=== PATIENT | female | born 1955 | race Caucasian/White ===

== ENCOUNTER → 2024-08-19 16:32 | Outpatient (REF) | payer OTHER, SELFPAY | LOC: RAD 16:32 | PROVIDERS: ATTENDING PHYSICIAN Family Medicine | DX: Z91.81 History of falling (principal); S09.90XA Unspecified injury of head, initial encounter | CPT/HCPCS: 70450 ==

== ENCOUNTER 2024-08-21 13:02 | Emergency (ER) | payer OTHER, SELFPAY ==
[2024-08-21 13:06] VITALS: BP 165/103
--- NOTE | 2024-08-21 15:13 | ED.GENMED ---
History of Present Illness
General
Chief Complaint: Headache
Source: patient
Exam Limitations: none
Time Seen by Provider: 08/21/24 14:03
Nursing documentation reviewed up to this point in time: agreed with
History of Present Illness
History of Present Illness:
68 yo female w h/o BPPV, has had a cough for past 3 days with 'coughing fits.' Yesterday during one of the coughing spells felt sudden 'like someone zapped me with a cattle prod' pain right posterior scalp. States her right eye has been tearing
frequently since. Denies change in vision, n/v/. The area is exquisitely painful whenever she coughs or even clears her throat.
She has taken Excedrin
She was here 2 days ago for frontal scalp injury when she ran into her garage door. Had saw PCP who felt her scalp and told her she had a skull fracture and sent her here for head CT. She never got the results of the CT but assumed she has a skull
fracture.
She is worried that the pain she feels in the back of her head when she coughs is related to the skull fracture.
Past History
Past History
ED Past Medical History: Psychiatric
ED Past Surgical History: Orthopedic
Social History
Tobacco: Non-smoker
Alcohol: None
Drug: None
Personal:
Living: with family
Review of Systems
Review of Systems
Allergies reviewed?: Yes
All Other Systems: ROS reviewed and negative except as documented in HPI and ROS
Constitutional: Denies fever or fatigue
EENT: Reports other (tearing right eye)
Respiratory: Denies trouble breathing
Cardiac: Denies chest pain
ABD/GI: Denies abdominal pain, nausea or vomiting
Musculoskeletal: Reports no symptoms
Skin: Reports no symptoms
Neurological: Reports other (shooting pains right posterior scalp with coughing); Denies dizzy, weakness or numbness
Phy Exam
Physical Exam
Physical Exam:
GENERAL: No acute distress. A&Ox3.
CONSTITUTIONAL: Afebrile.
HEAD: mild vertical depression palpable anterior middle scalp at part line. Rest of scalp NC/AT. With cough pt winces and holds right side posterior head due to pain which subsides immediately after coughing.
EYES: PERRL, conjunctivae normal
Neck: Supple
ENMT: moist mucus membranes, Pharynx nl, TMs normal
RESPIRATORY: Regular respirations, nonlabored, lungs clear.
CARDIOVASCULAR: Regular rate and rhythm, no murmurs, no rubs.
GI: Soft, nontender, normal BS
MUSCULOSKELETAL: Moves with ease. Well perfused.
SKIN: Warm, dry, pink
PSYCH: Normal mood and affect. Well kept, interactive and appropriate
NEUROLOGIC: Awake, alert and oriented. Speech clear. CN 2-12 intact. Finger to nose intact. No focal neurological deficits. ambulates with steady gait
Course
Orders/Labs/Results
Orders:
Orders
08/21/24 15:02
Dexamethasone Pf [Decadron] 10 mg PO NOW STA
Ketorolac [Toradol] 30 mg IM NOW STA
Vital Signs
Initial and Last Documented VS:
Initial Vital Signs
Temp Pulse Resp BP Pulse Ox
98 F 87 18 165/103 99
08/21/24 13:06 08/21/24 13:06 08/21/24 13:06 08/21/24 13:06 08/21/24 13:06
Last Documented Vital Signs
Temp Pulse Resp BP Pulse Ox
98 F 79 18 136/58 97
08/21/24 13:06 08/21/24 16:01 08/21/24 16:01 08/21/24 16:01 08/21/24 16:01
MDM/Problems Addressed
Differential Diagnosis Includes:
Cephalgia with coughing, occipital neuralgia
MDM/Problems Addressed:
68 yo female has had a cough for past 3 days with 'coughing fits.' Yesterday during one of the coughing spells felt sudden 'like someone zapped me with a cattle prod' pain right posterior scalp. States her right eye has been tearing frequently
since. Denies change in vision, n/v/. The area is exquisitely painful whenever she coughs or even clears her throat. Her cough and congestion are improving she states.
She has taken Excedrin
She was here 2 days ago for frontal scalp injury when she ran into her garage door. Had saw PCP who felt her scalp and told her she had a skull fracture and sent her here for head CT. She never got the results of the CT but assumed she has a skull
fracture.
She is worried that the pain she feels in the back of her head when she coughs is related to the skull fracture.
There is order in [place] for head CT and it was done but there is not report in the system.
I contacted Dr. Gonzalez who read it and states no fracture or other acute abnormality
IMPRESSION:
1. No intracranial hemorrhage or displaced skull fracture appreciated.
2. Mild white matter hypoattenuation, most suggestive of small vessel change.
3. Chronic lacunar infarct within the left insular cortex region.
Copy of report given to pt, reviewed and all questions answered.
Neuro exam is normal, no indication for further imaging.
Plan: Ibuprofen, Toradol IM and Decadron 10 mg given here
Pt reassured she does not have skull fracture so posterior scalp pain is not related to a skull fracture
BP at discharge 136/58. Ambulated out with steady gait
mild vertical depression palpable anterior middle scalp at part line (her normal anatomy?) She states it's never been there before.
*Critical Care Note
Total Time (30-74mins, 75-104mins- exclusive of procedures): Not Applicable
ED Attending Note
-
Portions of this chart may have been created with voice recognition software.� Occasional wrong word or��sound alike� substitutions may have occurred due to the inherent limitations of voice recognition software.
Discharge Plan
Departure
Patient Disposition: Home (Routine Discharge)
Date of Disposition: 08/21/24
Time of Disposition: 15:58
Patient with high blood pressure during this ER visit?: No
Condition: Good
Discharge Problem:
Head pain cephalgia
Instructions: Headache, Adult (DC)
Prescriptions:
No Action
naproxen sodium [Aleve] 220 MG tablet
220 mg PO DAILY
Referrals:
Dulce Maria Ravi DO [Family Provider] - As needed
Activity Restrictions/Additional Instructions:
As we discussed, no skull fracture on CT scan
Your pain is called cephalgia, a general name for scalp nerve pain.
You were given Decadron (a steroid for inflammation) and Toradol (antiinflammatory, analgesic)
Ibuprofen 600 mg (with food) every 6 hours as needed for the next 2 days.
If you still have scalp pain, see your doctor for recheck in 4-5 days.
Interventions
Interventions:
*Risk Screen - Suicide Last Done: 08/21/24 13:06
*General Assessment Last Done: 08/21/24 13:06
*Neglect/Abuse Screening Last Done: 08/21/24 13:06
ED- Fall Risk Assessment Last Done: 08/21/24 16:03
*ED COVID-19 Vaccine History Last Done: 08/21/24 16:28
*Nursing Disposition Last Done: 08/21/24 16:28
ED- Neurological Assessment Last Done: 08/21/24 16:03
Discharge Date and Time
Discharge Date/Time: 08/21/24 16:10
Print Language: ROMANIAN
[2024-08-21] MEDS: TORADOL 30 MG IM (15:25)
[2024-08-21] MEDS: DECADRON 10 MG PO (15:26)
[2024-08-21 15:27] VITALS: BP 136/58
[2024-08-21 16:01] VITALS: BP 136/58
== END 2024-08-21 16:10 | disposition home or self-care (01) ==
LOC: EMR 13:02
PROVIDERS: EMERGENCY PHYSICIAN Student in an Organized Health Care Education/Training Program; FAMILY PHYSICIAN Family Medicine
DX: R51.9 Headache, unspecified (principal); Z86.73 Personal history of transient ischemic attack (TIA), and cerebral infarction without residual deficits
CPT/HCPCS: 99282; 96372

== ENCOUNTER 2024-12-02 15:35 | Emergency (ER) | payer OTHER, SELFPAY ==
[2024-12-02 15:54] VITALS: BP 153/90
[2024-12-02 16:27] LABS: % Basophils 0.4 % (0-2); % Eosinophils 2.5 % (0-6); % Immature Granulocytes 0.1 % (0-0.5); % Lymphocytes 34.6 % (20.5-51.1); % Monocytes 7.9 % (1.7-9.3); % Neutrophils 54.5 % (42.2-75.2); Absolute Eosinophils 0.2 10^3/uL (0-0.7); Absolute Lymphocytes 2.7 10^3/uL (1.2-3.4); Absolute Monocytes 0.6 10^3/uL (0.1-0.6); Absolute Neutrophils 4.2 10^3/uL (1.4-6.5); Hematocrit 40.5 % (37.0-47.0); Hemoglobin 13.5 g/dL (12.0-16.0); Mean Corp Hgb Conc. 33.3 g/dL (33.0-37.0); Mean Corpuscular Hgb 32.8 pg (27.0-31.0); Mean Corpuscular Volume 98.3 fL (81.0-99.0); Mean Platelet Volume 10.8 fL (7.4-10.4); Nucleated Red Blood Cells % 0 %; Platelet Count 232 10^3/uL (130-400); Red Blood Cell Count 4.12 10^6/uL (4.20-5.40); Red Cell Dist. Width 12.7 % (11.5-14.5); White Blood Cell Count 7.7 10^3/uL (4.8-10.8)
[2024-12-02 16:41] LABS: ALT (SGPT) 17 U/L (0-35); AST (SGOT) 27 U/L (14-36); Albumin 4.6 g/dl (3.5-5.0); Alkaline Phosphatase 106 U/L (38-126); Blood Urea Nitrogen 19 mg/dl (7-17); Calcium 9.7 mg/dl (8.4-10.2); Carbon Dioxide 28 mmol/L (22-30); Chloride 100 mmol/L (98-107); Glucose 101 mg/dl (70-99); Magnesium 2.4 mg/dl (1.6-2.3); Potassium 4.3 mmol/L (3.5-5.1); Sodium 137 mmol/L (135-145); Total Bilirubin 1.3 mg/dl (0.2-1.3); Total Protein 7.4 g/dl (6.3-8.2); eGFR > 60.00
[2024-12-02 16:52] LABS: Troponin I < 0.012 ng/ml
[2024-12-02 17:11] LABS: TSH Reflex To Free T4 1.39 uIU/ml (0.47-4.68)
--- NOTE | 2024-12-02 18:43 | ED.GENMED ---
History of Present Illness
General
Chief Complaint: Cardiac Symptoms
Time Seen by Provider: 12/02/24 18:28
History of Present Illness
History of Present Illness:
69-year-old female with history of hyperlipidemia presents to the emergency department for evaluation of multiple symptoms. She reports ongoing intermittent chest discomfort for the past month. This pain is seemingly random with no obvious
provocation or palliation, she does note that there is no clear exertional worsening of the symptom. She also notes that she has had vertigo for the past week. Prior history of positional vertigo that required vestibular therapy. No vertigo at
rest. Denies any vision changes, shortness of breath, pleuritic chest pain, nausea, vomiting.
Past History
Past History
ED Past Medical History: Psychiatric
ED Past Surgical History: Orthopedic
Social History
Tobacco: Non-smoker
Alcohol: None
Drug: None
Personal:
Living: with family
Review of Systems
Review of Systems
Allergies reviewed?: Yes
All Other Systems: ROS reviewed and negative except as documented in HPI and ROS
Phy Exam
Physical Exam
Physical Exam:
GEN: Well appearing, NAD, WDWN
HEENT: Oral mucosa moist, no scleral icterus
Cardiac: Regular rate and rhythm, no murmurs
Lung: No respiratory distress, no tachypnea, lungs clear to auscultation bilaterally
MSK: No gross deformity or injuries
Skin: Good color, no pallor or jaundice, no rashes
Neuro: AO x3, moves all extremities freely, cranial nerves II through XII grossly intact, no clear nystagmus with head movement
Psych: Calm, cooperative
Course
Orders/Labs/Results
Orders:
Orders
12/02/24 15:37
Electrocardiogram (*1) Urgent
Reason for Study: Palpitations
EKG- Treatment ONCE
12/02/24 16:07
Complete Blood Count/With Diff Urgent
Comprehensive Metabolic Panel Urgent
Magnesium Urgent
TSH Reflex To Free T4 Urgent
Troponin I Urgent
Abnormal Lab Results
12/02/24
16:07
RBC 4.12 L 10^6/uL
(4.20-5.40)
MCH 32.8 H pg
(27.0-31.0)
MPV 10.8 H fL
(7.4-10.4)
BUN 19 H mg/dl
(7-17)
Glucose 101 H mg/dl
(70-99)
Magnesium 2.4 H mg/dl
(1.6-2.3)
12/02/24 16:07
12/02/24 16:07
Vital Signs
Initial and Last Documented VS:
Initial Vital Signs
Temp Pulse Resp BP Pulse Ox
98.1 F 78 20 153/90 98
12/02/24 15:54 12/02/24 15:54 12/02/24 15:54 12/02/24 15:54 12/02/24 15:54
Last Documented Vital Signs
Temp Pulse Resp BP Pulse Ox
98.1 F 76 18 166/81 100
12/02/24 15:58 12/02/24 19:02 12/02/24 19:02 12/02/24 19:02 12/02/24 19:02
MDM/Problems Addressed
MDM/Problems Addressed:
In regards to the patient's chest pain this is low risk for ACS, no obvious exertional component to it. She does have risk factors including hyperlipidemia however given the symptoms ongoing for 1 month with a normal EKG and reassuring troponin I
do not see indication for admission for further ischemic workup rather she is suitable for outpatient management through the chest pain hotline.
In regards to the vertigo this is likely benign positional vertigo as it abates with rest. She does not wish to stay for trial of diazepam, will prescribe diazepam on a as needed basis and refer to vestibular therapy as an outpatient, do not see
indication for neuroimaging at this time
Comment
Comment:
EKG independently interpreted by me shows normal sinus rhythm at a rate of [address] changes concerning for ischemia
*Critical Care Note
Total Time (30-74mins, 75-104mins- exclusive of procedures): Not Applicable
ED Attending Note
-
Portions of this chart may have been created with voice recognition software.� Occasional wrong word or��sound alike� substitutions may have occurred due to the inherent limitations of voice recognition software.
Discharge Plan
Departure
Patient Disposition: Home (Routine Discharge)
Date of Disposition: 12/02/24
Time of Disposition: 18:50
Patient with high blood pressure during this ER visit?: Yes
Discharge Problem:
Benign paroxysmal positional vertigo, Atypical chest pain
Instructions: Chest Pain CBC Follow Up
Prescriptions:
New
diazepam 2 mg tablet
2 - 4 mg PO TID PRN (Reason: dizziness) Qty: 12 0RF
No Action
naproxen sodium [Aleve] 220 MG tablet
220 mg PO DAILY
Interventions
Interventions:
*Risk Screen - Suicide Last Done: 12/02/24 19:05
*General Assessment Last Done: 12/02/24 15:54
*Neglect/Abuse Screening Last Done: 12/02/24 19:05
*Nursing Disposition Last Done: 12/02/24 19:05
ED- Cardiac Assessment Last Done: 12/02/24 18:49
ED- Pulmonary Assessment Last Done: 12/02/24 18:49
Discharge Date and Time
Discharge Date/Time: 12/02/24 19:12
Print Language: FRISIAN
[2024-12-02 19:02] VITALS: BP 166/81
== END 2024-12-02 19:12 | disposition home or self-care (01) ==
LOC: EMR 15:35
PROVIDERS: Emergency Medicine; EMERGENCY PHYSICIAN Emergency Medicine; FAMILY PHYSICIAN Family Medicine
DX: R07.89 Other chest pain (principal); H81.10 Benign paroxysmal vertigo, unspecified ear; E78.5 Hyperlipidemia, unspecified
CPT/HCPCS: 99284; 80053; 83735; 84443; 84484; 85025; 93005

== ENCOUNTER → 2024-12-13 10:16 | Outpatient (REF) | payer OTHER, SELFPAY | LOC: RCS 10:16 | PROVIDERS: ATTENDING PHYSICIAN Internal Medicine; FAMILY PHYSICIAN Family Medicine | DX: R07.9 Chest pain, unspecified (principal); R42 Dizziness and giddiness; R00.2 Palpitations | CPT/HCPCS: 93017 ==

== ENCOUNTER → 2024-12-20 13:24 | Outpatient (REF) | payer OTHER, SELFPAY | LOC: RCS 13:24 | PROVIDERS: ATTENDING PHYSICIAN Internal Medicine; FAMILY PHYSICIAN Family Medicine | DX: R07.9 Chest pain, unspecified (principal); R42 Dizziness and giddiness; R00.2 Palpitations | CPT/HCPCS: 93306 ==

== ENCOUNTER → 2024-12-27 12:53 | Outpatient (REF) | payer OTHER, SELFPAY | LOC: RCS 12:53 | PROVIDERS: ATTENDING PHYSICIAN Internal Medicine; FAMILY PHYSICIAN Family Medicine | DX: R00.2 Palpitations (principal) | CPT/HCPCS: 93225; 93226 ==